=== PATIENT | male | born 1995 | race Caucasian/White ===

== ENCOUNTER → 2016-11-14 | Outpatient (REF) | payer OTHER | LOC: M LAB REF 11-13 10:46 | PROVIDERS: ATTEND Physician Assistant | DX: J02.9 Acute pharyngitis, unspecified (principal) ==

== ENCOUNTER → 2017-07-16 | Outpatient (CLI) | payer OTHER ==
--- NOTE | 2017-07-16 13:12 | REP ---
Clinical: Left-sided abdominal pain. Technique: Axial noncontrast images from the lung bases to the pubic symphysis with coronal and sagittal re-formations. Findings: Mild acute left-sided obstructive uropathy with mild hydroureteronephrosis and periureteral stranding secondary to a 2 mm calculus in the mid-left ureter (images 94 - 95). Right kidney demonstrates 2 mm nonobstructing intrarenal calculus and no evidence for hydroureteronephrosis. The bladder is collapsed and grossly unremarkable. Liver, spleen, pancreas, gallbladder, bilateral adrenal glands are normal for noncontrast evaluation. The enteric system is without obstruction or acute inflammatory process. Pelvis demonstrates collapsed normal bladder and age appropriate prostate/seminal vesicles. No pelvic fluid or ascites. No significant adenopathy. No free air. Abdominal aorta without aneurysm. Musculoskeletal structures are intact. Impression: Mild acute left-sided obstructive uropathy with a 2 mm calculus in the mid-left ureter (images 94 - 95). 2 mm nonobstructing right renal calculus also identified. Signed by Ketan Byrne MD 07/16/2017 01:03 P
== END ==
LOC: M RAD 12:43
PROVIDERS: ATTEND Physician Assistant
DX: R11.2 Nausea with vomiting, unspecified (principal); R10.814 Left lower quadrant abdominal tenderness; N20.1 Calculus of ureter; N20.0 Calculus of kidney

== ENCOUNTER → 2017-07-16 | Outpatient (CLI) | payer OTHER ==
--- NOTE | 2017-07-16 11:45 | REP ---
Clinical: Abdominal left flank pain with nausea and vomiting. Technique: Two supine views of the abdomen and pelvis. Findings: Visualized bowel gas is nonspecific and without obstruction. No definite urinary tract calcifications are appreciated although evaluation is somewhat limited due to technique and overlying bowel gas. Impression: No obvious urinary tract calcifications. Signed by Ketan Byrne MD 07/16/2017 11:36 A
[2017-07-16 12:38] LABS: BASO % 0.6 % (0.0-1.0); EOS # 0.1 10^3/uL (0.0-0.50); EOS % 1.1 % (0.0-3.0); IMMATURE GRANULOCYTE % 0.4 % (0-0); LYMPH % 14.1 % (24.0-44.0); MEAN CORPUSCULAR HEMOGLOBIN 29.9 pg (27.0-33.0); MEAN CORPUSCULAR VOLUME 85.6 fl (80.0-96.0); MONO # 0.4 10^3/uL (0.0-0.8); MONO % 5.7 % (0.0-5.0); NEUTROPHILS # 5.6 10^3/uL (1.8-7.7); NEUTROPHILS % 78.1 % (36.0-66.0); PLATELET COUNT, AUTOMATED 252 10^3/uL (150-450); RED CELL DISTRIBUTION WIDTH 12.5 % (11.5-14.5); WHITE BLOOD COUNT 7.2 10^3/uL (4.0-10.0)
[2017-07-16 13:21] LABS: ALBUMIN 4.3 GM/DL (3.2-5.2); ALBUMIN/GLOBULIN RATIO 1.26 (1.00-1.93); ALKALINE PHOSPHATASE 71 U/L (45-117); ALT/SGPT 66 U/L (12-78); ANION GAP 12 MEQ/L (8-16); AST/SGOT 38 U/L (7-37); BILIRUBIN,TOTAL 0.6 MG/DL (0.2-1.0); BLOOD UREA NITROGEN 12 MG/DL (7-18); CALCIUM LEVEL 9.3 MG/DL (8.5-10.1); CARBON DIOXIDE LEVEL 25 MEQ/L (21-32); CHLORIDE LEVEL 105 MEQ/L (98-107); CREATININE FOR GFR 1.02 MG/DL (0.70-1.30); GLOMERULAR FILTRATION RATE > 60.0 (>60); GLUCOSE, FASTING 124 MG/DL (70-105); SODIUM LEVEL 142 MEQ/L (136-145); TOTAL PROTEIN 7.7 GM/DL (6.4-8.2)
== END ==
LOC: M WUC 11:22
PROVIDERS: ATTEND Physician Assistant
DX: R10.814 Left lower quadrant abdominal tenderness (principal); R11.2 Nausea with vomiting, unspecified

== ENCOUNTER → 2017-07-26 | Outpatient (CLI) | payer OTHER ==
--- NOTE | 2017-07-27 23:23 | SLEEPCENT ---
DATE OF PROCEDURE: 07/26/2017 REFERRING PHYSICIAN: Nanette Vo Nocturnal polysomnography was performed for evaluation of sleep physiology in this patient with complaints of excessive somnolence and nonrestorative sleep. 7 hours and 17 minutes of data were reviewed. There were 378 minutes of sleep identified. Sleep latency was prolonged at 40 minutes. Rapid eye movement (REM) latency was prolonged at 185 minutes. Sleep architecture showed poor progression, some fragmentation. Overall sleep efficiency was 87.7%. There was significant reduction in REM time and no N3 sleep seen. The EKG showed an underlying sinus rhythm with an average heart rate of 66 beats per minute. EEG showed reasonably normal waveforms for awake and sleep. There were 66 respiratory events identified of 10 seconds in duration or greater for an apnea hypopnea index of 10.5. The events were primarily obstructive, not exclusive to sleep stage, more frequent, but not exclusive in the supine posture. Arousals from respiratory events occurred four times per hour and oxygen desaturations were seen briefly into the 80s with some limb activity noted, but arousals were few. Significant snoring was noted. IMPRESSION: Obstructive sleep apnea syndrome (G47.33). Apnea/hypopnea index 10.5. RECOMMENDATION: The patient should be encouraged to return to the sleep disorder center for pressure therapy. In the interim, alcohol and sedative avoidance should be practiced and caution exercised during the operation of motor vehicles.
== END ==
LOC: M SLEEP 19:26
PROVIDERS: ATTEND Nurse Practitioner Adult Health
DX: G47.30 Sleep apnea, unspecified (principal)

== ENCOUNTER → 2017-08-09 | Outpatient (REF) | payer OTHER ==
[2017-08-10 13:11] LABS: CALCIUM OXALATE CRYSTALS SMALL
== END ==
LOC: M SMT 12:49
PROVIDERS: ATTEND Nurse Practitioner Family
DX: N20.0 Calculus of kidney (principal)

== ENCOUNTER → 2017-09-09 | Outpatient (REF) | payer OTHER ==
[2017-09-09 20:24] LABS: APPEARANCE, URINE CLOUDY (CLEAR); BACTERIA, URINE AUTO NEGATIVE (NEGATIVE); BILIRUBIN, URINE AUTO NEGATIVE (NEGATIVE); BLOOD, URINE BLOOD 3+ (NEGATIVE); CALCIUM OXALATE CRYSTALS LARGE; COLOR, URINE AMBER (YELLOW); GLUCOSE, URINE (UA) AUTO NEGATIVE (NEGATIVE); KETONE, URINE AUTO NEGATIVE (NEGATIVE); LEUKOCYTE ESTERASE, URINE AUTO NEGATIVE (NEGATIVE); MUCUS, URINE SMALL (NEGATIVE); NITRITE, URINE AUTO NEGATIVE (NEGATIVE); PROTEIN, URINE AUTO 1+ mg/dL (NEGATIVE); RBC, URINE AUTO TNTC /HPF (0-3); SPECIFIC GRAVITY URINE AUTO 1.027 (1.002-1.035); SQUAMOUS EPITHELIAL CELL UR AU 0 /HPF (0-6); UROBILINOGEN, URINE AUTO 0.2 mg/dL (0.0-2.0); WBC, URINE AUTO 4 /HPF (0-3)
== END ==
LOC: M SMT 18:32
DX: N20.0 Calculus of kidney (principal)

== ENCOUNTER → 2017-09-22 | Outpatient (REF) | payer OTHER ==
[2017-09-22 19:37] LABS: AMORPHOUS SEDIMENT SMALL (NEGATIVE); APPEARANCE, URINE HAZY (CLEAR); BACTERIA, URINE AUTO NEGATIVE (NEGATIVE); BILIRUBIN, URINE AUTO NEGATIVE (NEGATIVE); BLOOD, URINE BLOOD 3+ (NEGATIVE); COLOR, URINE YELLOW (YELLOW); GLUCOSE, URINE (UA) AUTO NEGATIVE (NEGATIVE); KETONE, URINE AUTO NEGATIVE (NEGATIVE); LEUKOCYTE ESTERASE, URINE AUTO NEGATIVE (NEGATIVE); MUCUS, URINE SMALL (NEGATIVE); NITRITE, URINE AUTO NEGATIVE (NEGATIVE); PROTEIN, URINE AUTO 1+ mg/dL (NEGATIVE); RBC, URINE AUTO TNTC /HPF (0-3); SQUAMOUS EPITHELIAL CELL UR AU 0 /HPF (0-6); WBC, URINE AUTO 1 /HPF (0-3)
== END ==
LOC: M SMT 17:38
DX: N20.0 Calculus of kidney (principal)
CPT/HCPCS: 81001

== ENCOUNTER → 2017-10-04 | Outpatient (CLI) | payer OTHER ==
[~2017-10-04] MED LIST: ISOVUE-370 76% 100ML VIAL (Q9967) As Ordered
== END ==
LOC: M RAD 16:57
DX: N20.0 Calculus of kidney (principal)

== ENCOUNTER → 2017-10-11 | Outpatient (REF) | payer OTHER ==
[2017-10-11 19:26] LABS: APPEARANCE, URINE CLEAR (CLEAR); BACTERIA, URINE AUTO NEGATIVE (NEGATIVE); BILIRUBIN, URINE AUTO NEGATIVE (NEGATIVE); BLOOD, URINE BLOOD NEGATIVE (NEGATIVE); COLOR, URINE YELLOW (YELLOW); GLUCOSE, URINE (UA) AUTO NEGATIVE (NEGATIVE); KETONE, URINE AUTO NEGATIVE (NEGATIVE); LEUKOCYTE ESTERASE, URINE AUTO NEGATIVE (NEGATIVE); MUCUS, URINE SMALL (NEGATIVE); NITRITE, URINE AUTO NEGATIVE (NEGATIVE); PROTEIN, URINE AUTO NEGATIVE (NEGATIVE); RBC, URINE AUTO 1 /HPF (0-3); SPECIFIC GRAVITY URINE AUTO 1.017 (1.002-1.035); SQUAMOUS EPITHELIAL CELL UR AU 0 /HPF (0-6); UROBILINOGEN, URINE AUTO 0.2 mg/dL (0.0-2.0); WBC, URINE AUTO 1 /HPF (0-3)
== END ==
LOC: M SMT 17:15
DX: R31.29 Other microscopic hematuria (principal)

== ENCOUNTER → 2018-07-25 | Outpatient (CLI) | payer OTHER ==
[2018-07-25 20:15] LABS: BASO # 0.1 10^3/uL (0.0-0.2); BASO % 0.6 % (0.0-1.0); EOS # 0.2 10^3/uL (0.0-0.50); EOS % 2.8 % (0.0-3.0); HEMATOCRIT 47.1 % (42.0-52.0); HEMOGLOBIN 16.2 g/dl (13.5-17.5); IMMATURE GRANULOCYTE % 0.2 % (0-3.0); LYMPH # 2.6 10^3/uL (1.5-6.5); LYMPH % 30.5 % (24.0-44.0); MEAN CORPUSCULAR HEMOGLOBIN 30.1 pg (27.0-33.0); MEAN CORPUSCULAR HGB CONC 34.4 g/dl (32.0-36.5); MEAN CORPUSCULAR VOLUME 87.4 fl (80.0-96.0); MONO # 0.6 10^3/uL (0.0-0.8); MONO % 7.1 % (0.0-5.0); NEUTROPHILS % 58.8 % (36.0-66.0); PLATELET COUNT, AUTOMATED 281 10^3/uL (150-450); RED BLOOD COUNT 5.39 10^6/uL (4.30-6.10); RED CELL DISTRIBUTION WIDTH 12.6 % (11.5-14.5); WHITE BLOOD COUNT 8.5 10^3/uL (4.0-10.0)
[2018-07-25 20:37] LABS: ANION GAP 9 MEQ/L (8-16); BLOOD UREA NITROGEN 9 MG/DL (7-18); CARBON DIOXIDE LEVEL 27 MEQ/L (21-32); CHLORIDE LEVEL 104 MEQ/L (98-107); CREATININE FOR GFR 0.88 MG/DL (0.70-1.30); GLOMERULAR FILTRATION RATE > 60.0 (>60); GLUCOSE, FASTING 81 MG/DL (70-100); NT-PRO BNP 10 PG/ML (<125); POTASSIUM SERUM 4.2 MEQ/L (3.5-5.1); SODIUM LEVEL 140 MEQ/L (136-145)
[2018-07-25 21:23] LABS: D-DIMER QUANT < 270 ng/ml (<500)
== END ==
LOC: M WUC 16:49
DX: R06.02 Shortness of breath (principal)
CPT/HCPCS: 80048

== ENCOUNTER → 2018-07-29 | Outpatient (REF) | payer OTHER ==
[2018-07-29 14:54] LABS: AMYLASE 49 U/L (25-115)
[2018-07-29 15:54] LABS: LIPASE 166 U/L (73-393)
== END ==
LOC: M LAB REF 13:30
DX: Z80.0 Family history of malignant neoplasm of digestive organs (principal)
CPT/HCPCS: 82150

== ENCOUNTER 2019-05-09 23:34 | Emergency (ER) | payer OTHER, SELFPAY ==
[~2019-05-09] VITALS: Ht 188 cm; Wt 163.6 kg
[2019-05-10 01:09] LABS: HEMATOCRIT 42.4 % (42.0-52.0); HEMOGLOBIN 15.4 g/dl (13.5-17.5); MEAN CORPUSCULAR HEMOGLOBIN 31.2 pg (27.0-33.0); MEAN CORPUSCULAR HGB CONC 36.3 g/dl (32.0-36.5); MEAN CORPUSCULAR VOLUME 85.8 fl (80.0-96.0); PLATELET COUNT, AUTOMATED 239 10^3/uL (150-450); RED BLOOD COUNT 4.94 10^6/uL (4.30-6.10); WHITE BLOOD COUNT 7.4 10^3/uL (4.0-10.0)
[2019-05-10 01:35] LABS: BLOOD UREA NITROGEN 13 MG/DL (7-18); CALCIUM LEVEL 8.8 MG/DL (8.5-10.1); CARBON DIOXIDE LEVEL 24 MEQ/L (21-32); CHLORIDE LEVEL 107 MEQ/L (98-107); CK-MB VALUE MASS 1.2 NG/ML (<3.6); CPK CREATINE PHOSPHOKINASE 201 U/L (39-308); CREATININE FOR GFR 0.84 MG/DL (0.70-1.30); GLOMERULAR FILTRATION RATE > 60.0 (>60); GLUCOSE, FASTING 109 MG/DL (70-100); POTASSIUM SERUM 3.9 MEQ/L (3.5-5.1); SODIUM LEVEL 141 MEQ/L (136-145); TROPONIN I < 0.02 NG/ML (< 0.10)
[2019-05-10 02:32] VITALS: BP 144/90
--- NOTE | 2019-05-10 05:50 | ECGEPIP ---
[facility] - ED Test Date: 2019-05-10 Pat Name: PRISCILLA HARMON Department: Room: - Gender: Male Supervisor Advice: CT : 1995 Requested By: MANNIE Arevalo PA-C Order Number: [id number] Reading MD: Calixto Koo Measurements Intervals [place] Rate: 60 P: 27 SC: 177 QRS: 41 QRSD: 104 T: 34 QT: 406 QTc: 408 Interpretive Statements SINUS RHYTHM NO PRIORS FOR COMPARISON Electronically Signed on 05-10-2019 5:49:37 EDT by Calixto Koo
--- NOTE | 2019-05-10 09:19 | REP ---
CHEST, PA AND LATERAL: COMPARISON: 09/24/2017 There is no evidence of acute infiltrate. No pleural effusion is seen. The heart is normal in size. The mediastinal silhouette is unremarkable. The visualized osseous structures are intact. IMPRESSION: No acute pulmonary disease. Electronically Signed by Brice Koenig MD 05/11/2019 08:04 A
== END 2019-05-10 02:34 | disposition home or self-care (01) ==
LOC: M ED 23:34
DX: R06.02 Shortness of breath (principal); Z87.09 Personal history of other diseases of the respiratory system; I10 Essential (primary) hypertension; J30.2 Other seasonal allergic rhinitis

== ENCOUNTER → 2019-10-18 | Outpatient (CLI) | payer OTHER | LOC: M SLEEP 19:38 | PROVIDERS: ATTEND Nurse Practitioner Family | DX: G47.33 Obstructive sleep apnea (adult) (pediatric) (principal) ==

== ENCOUNTER → 2020-01-22 | Outpatient (CLI) | payer OTHER ==
--- NOTE | 2020-01-31 11:04 | SLEEPCENT ---
DATE OF STUDY: 01/22/2020 ORDERING PROVIDER: GEORGE Costa Nocturnal polysomnography was performed for the titration of pressure therapy in this patient with severe obstructive sleep apnea syndrome. Apnea-hypopnea index of 102.5. For testing, the patient was fit with a Asuragen Simplus full face mask of small size. 4 cm of water pressure were applied to the circuit, and the lights were extinguished. 6 hours and 21 minutes of data were reviewed. There were only 161 minutes of sleep identified. Sleep latency was prolonged at 26.5 minutes. Rapid eye movement (REM) sleep was not achieved. Sleep architecture showed poor progression. The patient had some difficulty with mask fit. Overall sleep efficiency was 42.8%. The electrocardiogram showed a sinus rhythm with an average heart rate of 60 beats per minute. Electroencephalogram (EEG) showed normal waveforms for awake and sleep. Respiratory events were fairly well palliated with continuous positive airway pressure (CPAP) at a pressure of 10. There was some limb activity noted with limb movement arousal index of only 6. IMPRESSION: Obstructive sleep apnea syndrome (G47.33). RECOMMENDATION: Nightly use of pressure therapy at 10 cm of water would appear adequate to address the patient's obstructive respiratory events. Some difficulty was encountered with mask tolerance. Post clinical followup is recommended; and if persistent problems exist, a second night of titration may be necessary.
== END ==
LOC: M SLEEP 20:00
PROVIDERS: ATTEND Nurse Practitioner Family
DX: G47.33 Obstructive sleep apnea (adult) (pediatric) (principal)

== ENCOUNTER → 2020-08-27 | Outpatient (CLI) | payer SELFPAY | LOC: M LABSMTC 11:42 | PROVIDERS: ATTEND Pediatrics | DX: Z20.828 Contact with and (suspected) exposure to other viral communicable diseases (principal) ==

== ENCOUNTER → 2021-06-06 | Outpatient (CLI) | payer OTHER ==
--- NOTE | 2021-06-06 09:31 | REP ---
INDICATION: FLANK PAIN COMPARISON: CT report dated 10/04/2017 TECHNIQUE: Axial noncontrast images from the lung bases to the pubic symphysis with coronal and sagittal reformations. This CT examination was performed using the following dose reduction techniques: Automated exposure control, adjustment of mA and/or kv according to the patient's size, and use of iterative reconstruction technique. FINDINGS: Lung bases are clear. Visualized heart and pericardium normal. Liver, spleen, pancreas, gallbladder, bilateral adrenal glands and left kidney are normal. Right kidney includes 7 mm nonobstructing intrarenal calculus. The enteric system is unremarkable and without obstruction or acute inflammatory process. Normal terminal ileum and appendix identified in the right lower quadrant. Scattered sigmoid diverticula noted without acute diverticulitis. Pelvis demonstrates normal bladder and age-appropriate uterus/adnexa. No ascites. No free air. No adenopathy. No focal inflammatory stranding. Abdominal aorta without aneurysm. Musculoskeletal structures are intact and without acute osseous abnormality. IMPRESSION: No acute abdominopelvic pathology appreciated. 7 mm nonobstructing right nephrolith. <Electronically signed by Ketan Byrne > 06/06/21 0927
== END ==
LOC: M RAD 09:05
PROVIDERS: ATTEND Nurse Practitioner Adult Health
DX: N20.0 Calculus of kidney (principal)

== ENCOUNTER → 2021-07-26 | Outpatient (CLI) | payer OTHER | LOC: M LABSMTC 09:31 | PROVIDERS: ATTEND Anesthesiology | DX: Z01.812 Encounter for preprocedural laboratory examination (principal); Z20.822 Contact with and (suspected) exposure to COVID-19 ==

== ENCOUNTER → 2021-07-28 | Outpatient (REF) | payer OTHER ==
[~2021-07-28] MED LIST changes: +FLOM0.4C39 PO; -ISOVUE-370 76% 100ML VIAL (Q9967) As Ordered; +LISI20TA33; +ONDA-83; +OXYC1TAB23 PO
[2021-07-28 18:07] LABS: INR 0.99; PROTHROMBIN TIME 13.5 SECONDS (12.7-14.5)
[2021-07-28 18:08] LABS: PARTIAL THROMBOPLASTIN TIME 33.2 SECONDS (25.9-37.0)
[2021-07-28 18:40] LABS: APPEARANCE, URINE CLEAR (CLEAR); BACTERIA, URINE AUTO NEGATIVE (NEGATIVE); BILIRUBIN, URINE AUTO NEGATIVE (NEGATIVE); BLOOD, URINE BLOOD 3+ (NEGATIVE); COLOR, URINE YELLOW (YELLOW); GLUCOSE, URINE (UA) AUTO NEGATIVE (NEGATIVE); KETONE, URINE AUTO TRACE mg/dL (NEGATIVE); LEUKOCYTE ESTERASE, URINE AUTO NEGATIVE (NEGATIVE); MUCUS, URINE SMALL (NEGATIVE); NITRITE, URINE AUTO NEGATIVE (NEGATIVE); PROTEIN, URINE AUTO 1+ mg/dL (NEGATIVE); RBC, URINE AUTO 55 /HPF (0-3); SPECIFIC GRAVITY URINE AUTO 1.025 (1.002-1.035); SQUAMOUS EPITHELIAL CELL UR AU 0 /HPF (0-6); WBC, URINE AUTO 1 /HPF (0-3)
== END ==
LOC: M LAB REF 16:30
PROVIDERS: ATTEND Nurse Practitioner Adult Health
DX: Z01.818 Encounter for other preprocedural examination (principal)

== ENCOUNTER 2021-07-31 06:12 | Day surgery (SDC) | payer OTHER ==
[~2021-07-31] VITALS: Ht 188 cm; Wt 152.8 kg
[~2021-07-31 06:12] MED LIST changes: -FLOM0.4C39 PO; +LR 1,000 ML IV ONE; -OXYC1TAB23 PO; +ceFAZolin SOD 1 GM in D5W MINI-BAG PLUS 50 ML IV ONE; +ceFAZolin SOD 2 GM in IV 1 EA IV ONE
--- OUTSIDE RECORDS SUMMARY | 2021-07-31 06:15 | CCD | Continuity of Care Document ---
Author Author Lab Schedule, Jesse Salinas Organization Unknown Address [address] [place] [address] Phone Unavailable Care Team Providers Care Paper Steamer Name Role Phone Otilia Perla AUTM [phone] Lexie Anderson ANP AUTM [phone] [facility] Radiology AUTM [phone] Patti Hunter WRAPPER LEAF INSPECTOR AUTM [phone] Problems Active Problems Provider Date Obesity Javi Moran MD Onset: 03/01/2012 Allergic rhinitis Javi Moran MD Onset: 03/01/2012 Obstructive sleep apnea of adult Rajni GEORGE Mckeon Onset: 09/07/2017 Social History Type Date Description Comments Sex Unknown ETOH Use Occasionally consumes beer or li quor 2-3 drinks on the weekends Tobacco Use Start: Unknown Patient has never smoked Exercise Type/Frequency Exercises regularly goes to gym every-other day, then walk in [facility] Allergies and adverse reactions Description No Known Drug Allergies Medications Active Medications SIG Qnty Indications Ordering Provide r Date Zofran 4mg Tablets 1 by mouth every 6 hrs. as needed nausea 18tabs DASH Loaiza 07/02/2021 Montelukast Sodium 10mg Tablets take one tablet by mouth at bedtime 90tabs RITIKA Brown JR 05/10/2020 Lisinopril 20mg Tablets Take One Tablet By Mouth Daily 90tabs I10 DASH Loaiza 09/30/2018 Blood Pressure Cuff Misc BP before med administration, 1 hour after and once before bed. 1units GEORGE Chin 07/28/2018 No OTC Meds Javi Moran MD Dymista 137-50mcg/Act Suspension 1 spray each nostril twice a day 23gm Edgardo Barron JR, P A Medications Administered in Office Medication SIG Qnty Indications Ordering Provider Date Covid-19 vaccine, Unspecified Inj ection Unknown 10/30/2020 Covid-19 vaccine, Unspecified Inj ection Unknown 10/02/2020 Immunizations CPT Code Status Date Vaccine Lot # U-Flu Refused 07/28/2018 Influenza,Unspecified Vital Signs Date Vital Result Comment 05/21/2021 9:11am BP Systolic 142 mmHg BP Diastolic 88 mmHg Heart Rate 84 /min Height 72.75 inches 6'0.75" Weight 347.00 lb O2 % BldC Oximetry 96 % BMI (Body Mass Index) 46.1 kg/m2 07/08/2020 1:30pm BP Systolic 122 mmHg BP Diastolic 70 mmHg Heart Rate 82 /min Height 72.75 inches 6'0.75" Weight 358.00 lb O2 % BldC Oximetry 97 % BMI (Body Mass Index) 47.6 kg/m2 Results Test Acquired Date Facility Test Result H/L Range Note Laboratory test finding 07/28/[address] [address] [phone] Urine Culture <pending> Coronavirus 2019 Nasopharygeal 07/26/[address] [address] [phone] Coronavirus 2019 Nasopharygeal ASSAY INFORMATIO <SEE N OTE> 1 Complete Blood Count 05/21/2021 [facility] Metal Refiner: [place] [address] [phone] WBC 6.3 x10*3/UL 4.1 - 10.9 RBC 5.31 x10*6/UL 4.20 - 6.30 Hemoglobin 16.0 g/dL 12.0 - 18.0 Hematocrit 45.5 % 37.0 - 51.0 MCV 85.8 fL 80.0 - 97.0 MCH 30.2 pg 26.0 - 32.0 MCHC 35.2 g/dL 31.0 - 38.0 RDW 12.6 % 11.6 - 13.7 PLT 253 x10*3/UL 140 - 440 MPV 9.5 FL 7.8 - 11.0 Lymph % 26.2 % 10.0 - 58.5 Mid % 6.5 % 1.7 - 9.3 Neut % 67.3 % 37.0 - 92.0 Lymph # 1.6 x10*3/UL 0.6 - 4.1 Mid # 0.5 x10*3/UL 0.1 - 0.6 Neut # 4.2 x10*3/UL 2.0 - 7.8 Comprehensive Chem Profile 05/21/2021 [facility] Metal Refiner: [place] [address] [phone] Glucose 81 mg/dL 74 - 99 2 BUN 10 mg/dL 7 - 18 Creatinine 1.0 mg/dL 0.6 - 1.3 Sodium 139 mEq/L 136 - 145 Potassium 4.3 mEq/L 3.5 - 5.1 Chloride 103 mEq/L 98 - 107 Carbon Dioxide 32 mEq/L 21 - 32 Calcium 9.2 mg/dL 8.5 - 10.1 Alk. Phosphatase 71 mg/dL 46 - 116 Total Bilirubin 0.5 mg/dL 0.2 - 1.0 Ast (Sgot) 37 U/L 15 - 37 Alt (SGPT) 80 U/L High 12 - 78 Albumin 4.0 g/dL 3.4 - 5.0 Total Protein 7.4 g/dL 6.4 - 8.2 A/G Ratio 1.18 CALC 1.00 - 1.90 GFR >= 60 mL/min >60 GFR >= 60 mL/min >60 3 Lipid Profile 05/21/2021 [facility] Metal Refiner: [place] [address] [phone] Cholesterol 134 mg/dL 131 - 200 Triglycerides 128 mg/dL 30 - 150 HDL Cholesterol 33 mg/dL Low 35 - 60 LDL (Calculated) 75 CALC 50 - 159 1 ASSAY INFORMATION: Real Time RT-PCR NOTE: The COVID-19 assay has been cleared by the U.S. Food and Drug Administration under the Emergency Use Authorization (EUA). [facility] are designated as high complexity laboratories by the Clinical Laboratory Improvement Amendments of 1988(CLIA) and are qualified to perform this test. Not Detected 2 100-125 mg/dL PRE-DIABET ES/FASTING >126 mg/dL DIABETES/FASTING 3 CHRONIC KIDNEY DISEASE STAGI NG PER NKF STAGE I & II GFR >= 60 NORMAL TO MILDLY DECREASED STAGE III GFR 30-59 MODERATELY DECREASED STAGE IV GFR 15-29 SEVERELY DECREASED STAGE V GFR <15 VERY LITTLE GFR LEFT ESRD GFR <15 ON LACROSSE PLAYER Procedures Date Code Description Status 05/21/2021 86929 Est Prevent Med (18-39Yrs) Compl eted 2016 [id number] Diabetic Retinal Eye Exam Comple william 09/06/2012 [id number] Diabetic Retinal Eye Exam Comple [facility] Medical Devices Description No Information Available Encounters Type Date Location Provider Dx Diagnosis Office Visit 05/21/2021 9:00a [facility] DASH Loaiza Z00.00 Encntr for general adult medical exam w/ o abnormal findings I10 Essential (primary) hyperten ericka Z68.42 Body mass index [BMI] 45.0-4 9.9, adult E66.01 Morbid (severe) obesity due to excess calories Z13.89 Encounter for screening for other disorder Assessments Date Code Description Provider 05/21/2021 Z00.00 Encounter for genera l adult medical examination without abnormal findings DASH Loaiza 05/21/2021 I10 Essential (primary) hypertension DASH Loaiza 05/21/2021 Z68.42 Body mass index [BMI] 45.0-49.9, adult DASH Loaiza 05/21/2021 E66.01 Morbid (severe) obesity due to e xcess calories DASH Loaiza 05/21/2021 Z13.89 Encounter for screening for othe r disorder DASH Loaiza Plan of Treatment Future Appointment(s):* 11/18/2021 9:40 am - DASH Loaiza at [facility] 05/21/2021 - DASH Loaiza* Z00.00 Encounter for general adult medical examination without abnormal findings * I10 Essential (primary) hypertension* Comments:* controlled with current medication * Z68.42 Body mass index [BMI] 45.0-49.9, adult * E66.01 Morbid (severe) obesity due to excess calories* Comments:* pt has lost 10 pounds and states he is making small changes to his diet to attempt to lose weight. pt encouraged to incorporate more physical activity into his daily routine as well. pt states more active that he is now working again. * Z13.89 Encounter for screening for other disorder * All * Comments:* follow up in 3 months. pt informed to contact practice for recurrent flank pain, hematuria, or issues urinating. Functional Status Description No Information Available Mental Status Description No Information Available Referrals Refer to Dr Reason for Referral Status Appt Date [facility] CONSULT FOR RT FLANK PAIN, H X OF KIDNEY STONE PT SCHEDULED FOR CT ABD/PELVIS AT [facility] ON 06/06/21 Created /0 [id number], [address] [place], [place] [id number] [phone]
--- OUTSIDE RECORDS SUMMARY | 2021-07-31 06:15 | CCD ---
Author Author [facility] Organization [facility] Address Unknown Phone Unavailable Care Team Providers Care Company Dancer Name Role Phone IvanPatti fernandes Unavailable PROBLEMS Type Condition ICD9-CM Code JCE64-VD Code Onset Dates Condition S tatus W/U Status Risk SNOMED Code Notes Problem Kidney stone N20.0 Active confirmed 5099333 7 Problem Microscopic hematuria R31.29 Active confirmed 851373657 ALLERGIES No Known Allergies ENCOUNTERS from 1995 to 2021-07-23 Encounter Location Date Provider Diagnosis [facility] [address] [phone] [place] [address] Jun, Patti Hunter Kidney stone N20.0 and Pre-op testing Z0 1.818 IMMUNIZATIONS No Information SOCIAL HISTORY Tobacco Use: Social History Observation Description Date Details (start date - stop date) Never Smoker Sex Assigned At : Social History Observation Description Sex Assigned At Unknown Education: Question Answer Notes Level of Education: College Oriental Orthodox: Question Answer Notes Oriental Orthodox none Sexual Hx: Question Answer Notes Had sex in the last 12 months (vaginal, oral, or anal)? No Have you ever had an STD? No Alcohol Screening: Question Answer Notes Did you have a drink containing alcohol in the past year? Ye s Points 4 Interpretation Positive How often did you have six or more drinks on one occas ion in the past year? Never (0 points) How many drinks did you have on a typica l day when you were drinking in the past year? 3 or 4 (1 point) How often did you have a drink containing alcohol in t he past year? Two to three times per week (3 points) BMI Care Goal Follow-Up Question Answer Notes Above Normal BMI Follow-Up Dietary management educatio n, guidance, and counseling Tobacco Use: Question Answer Notes Are you a: never smoker former smoker Additional Findings: Tobacco Non-User Current non-smoker REASON FOR REFERRAL No Information VITAL SIGNS Weight 357 lbs Jun, Weight-kg 161.93 kg Jun, Height 74 in Jun, BMI 45.83 kg/m2 Jun, Heart Rate 56 /min Jun, Respiratory Rate 18 /min Jun, Temperature 97.3 degrees Fahrenheit Jun, Oximetry 99% Jun, Blood pressure systolic 128 mm Hg Jun, Blood pressure diastolic 78 mm Hg Jun, MEDICATIONS Medication SIG (Take, Route, Frequency, Duration) Notes Start Da te End Date Status Ibuprofen 800 MG 1 tablet with food or milk as needed Ora lly Three times a day prn Active Dymista 137-50 MCG/ACT 1 puff in each nostril Nasally Twice a day prn Active Lisinopril 20 MG 1 tablet Orally Once a day for 30 day(s) Active Singulair 10 MG 1 tablet in the evening Orally Once a day prn Active PROCEDURES No Information RESULTS No Results REASON FOR VISIT Kidney stone MEDICAL (GENERAL) HISTORY Type Description Date Medical History nephrolithiasis Medical History SEASONAL ALLERGIES Medical History HTN Surgical History TONSILLECTOMY WITH ADENOIDECTOMY Goals Section No Information Health Concerns No Information MEDICAL EQUIPMENT No Information MENTAL STATUS No Information FUNCTIONAL STATUS No Information ASSESSMENTS Encounter Date Diagnosis Assessment Notes Treatment Notes Treatm ent Clinical Notes Jun, Kidney stone (ICD-10 - N20.0) Jun, Pre-op testing (ICD-10 - Z01.818) Jun, Other Extracorporeal s hock wave lithotripsy home care material was printed Patient Educated with: ESWL Patient Information Sheet.pdf (ESWL Patient Information Sheet.pdf) PLAN OF TREATMENT Future Test Test Name Order Date XRAY ABDOMEN, FLAT PLATE KUB XR.ABDP PLZ or SMC 994056 20 Basic Metabolic Profile (BMP) [id number] CBC - Complete Blood Count 20210721 PT & APTT [id number] URINE CULTURE [id number] UA URINALYSIS [id number] Next Appt Details Provider Name:Patti Hunter, 2020-12-2 3 10:15:00 AM, [address], , [place], [address], Insurance Providers Payer Name Payer Address Payer Phone Insured Name Patient Relati onship to Insured Coverage Start Date Coverage End Date [facility] [address] [address] [facility] [phone] PRISCILLA BRAND self
--- OUTSIDE RECORDS SUMMARY | 2021-07-31 06:15 | CCD | Continuity of Care Document ---
Author Author Jesse Anderson Organization Unknown Address [address] [facility] [address] [place] [address] Phone [phone] Care Team Providers Care Shift Boss Name Role Phone Otilia Perla AUTM [phone] Lexie Anderson ANP AUTM [phone] [facility] AUTM [phone] Problems Active Problems Provider Date Obesity Javi Moran MD Onset: 03/01/2012 Allergic rhinitis Javi Moran MD Onset: 03/01/2012 Obstructive sleep apnea of adult Phyl GEORGE Mckeon Onset: 09/07/2017 Social History Type Date Description Comments Sex Unknown ETOH Use Occasionally consumes beer or li quor 2-3 drinks on the weekends Tobacco Use Start: Unknown Patient has never smoked Exercise Type/Frequency Exercises regularly goes to gym every-other day, then walk in [facility] Allergies, Adverse Reactions, Alerts Description No Known Drug Allergies Medications Active Medications SIG Qnty Indications Ordering Provide r Date Montelukast Sodium 10mg Tablets take one tablet [...] nostril twice a day 23gm Edgardo Barron JR P A Medications Administered in Office Medication [...] Date Facility Test Result H/L Range Note Complete Blood Count 05/21/2021 [facility] Hydrant Setter: Dr Javi Moran [place], [place] [id number] [phone] WBC 6.3 x10*3/UL 4.1 - 10.9 RBC [...] 2.0 - 7.8 Comprehensive Chem Profile 05/21/2021 [facility] Hydrant Setter: Dr Javi Moran [place], [place] [address] [phone] Glucose 81 mg/dL 74 - 99 1 BUN 10 mg/dL 7 - 18 Creatinine [...] mL/min >60 GFR >= 60 mL/min >60 2 Lipid Profile 05/21/2021 [facility] Hydrant Setter: [place] [address] [phone] Cholesterol 134 mg/dL 131 - 200 Triglycerides 128 mg/dL 30 - 150 HDL Cholesterol 33 mg/dL Low 35 - 60 LDL (Calculated) 75 CALC 50 - 159 1 100-125 mg/dL PRE-DIABET ES/FASTING >126 mg/dL DIABETES/FASTING 2 CHRONIC KIDNEY DISEASE STAGI NG PER NKF STAGE I & II GFR >= 60 NORMAL TO MILDLY DECREASED STAGE III GFR 30-59 MODERATELY DECREASED STAGE IV GFR 15-29 SEVERELY DECREASED STAGE V GFR <15 VERY LITTLE GFR LEFT ESRD GFR <15 ON PERSONAL COMPUTER NETWORK ENGINEER Procedures Date Code Description Status 05/21/2021 72798 Est Prevent Med (18-39Yrs) Compl eted 2016 [id number] Diabetic Retinal Eye Exam Comple william 09/06/2012 [id number] Diabetic Retinal Eye Exam Comple [facility] Medical Devices Description No Information Available Encounters Type Date Location Provider Dx Diagnosis Office Visit 05/21/2021 9:00a [facility], DASH Z00.00 Encntr for general adult medical exam [...] 11/18/2021 9:40 am - [facility] 05/21/2021 - DASH Loaiza* Z00.00 Encounter [...] Mental Status Description No Information Available Referrals Description No Information Available
--- OUTSIDE RECORDS SUMMARY | 2021-07-31 06:15 | CCD | Continuity of Care Document ---
Author Author Jesse Anderson Organization Unknown Address [address] [facility] [address] [place] [address] Phone [phone] Care Team Providers Care Automatic Spooler Operator Name Role Phone Otilia Perla AUTM [phone] Lexie Anderson ANP AUTM [phone] [facility] AUTM [phone] Problems Active Problems Provider Date Obesity Javi [...] to gym every-other day, then walk in [facility] Allergies, Adverse Reactions, Alerts Description No Known Drug Allergies Medications Active Medications SIG Qnty Indications Ordering Provide r Date Montelukast Sodium 10mg Tablets take one tablet by mouth at bedtime 90tabs RIITKA Brown JR 05/10/2020 Lisinopril 20mg Tablets Take [...] BMI (Body Mass Index) 47.6 kg/m2 Results Description No Information Available Procedures Date Code Description Status 2015 [id number] Diabetic Retinal Eye Exam Comple william 09/06/2012 750070967 Diabetic Retinal Eye Exam [facility]ple [facility] Medical Devices Description No Information Available Encounters Description No Information Available Assessments Date Code Description Provider 05/21/2021 Z00.01 Adult health examination DASH Parry 05/21/2021 I10 Essential (primary) hypertension DASH Loaiza 05/21/2021 E66.01 Morbid (severe) obesity due to e xcess calories DASH Loaiza Plan of Treatment Future Appointment(s):* 11/18/2021 9:40 am - DASH Loaiza at [facility] 05/21/2021 - DASH Loaiza* Z00.01 Adult health examination* Comments:* pt to have CT with stone protocol. follow up with urology. pt encouraged to use strainer or urinal when urinating to ensure stones have passed. pt told to call or go to ER with hematuria, severe flank pain, nausea, or vomiting. pt continues to use OTC acetaminophen as needed. * I10 Essential (primary) hypertension* Comments:* controlled with current medication * E66.01 Morbid (severe) obesity due to excess calories* Comments:* pt has lost 10 pounds and states he is making small changes to his diet to attempt to lose weight. pt encouraged to incorporate more physical activity into his daily routine as well. pt states more active that he is now working again. * All * Comments:* follow up in 3 months. pt informed to contact practice for recurrent flank pain, hematuria, or issues urinating. Functional Status Description No Information Available Mental Status Description No Information Available Referrals Description No Information Available
--- OUTSIDE RECORDS SUMMARY | 2021-07-31 06:15 | CCD | Continuity of Care Document ---
Author Author Lab Schedule, Jesse Salinas Organization Unknown Address [address] [place] [id number] Phone Unavailable Care Team Providers Care Chief Medical Technologist Name Role Phone Otilia Perla AUTM [phone] Lexie Anderson ANP AUTM [phone] [facility] Radiology AUTM [phone] Patti Hunter [employer] AUTM [phone] Problems Active Problems Provider Date Obesity Javi [...] to gym every-other day, then walk in [facility] Allergies and adverse reactions Description No [...] H/L Range Note Laboratory test finding 07/28/[address] [address] [phone] Urine Culture <pending> Coronavirus 2019 Nasopharygeal 07/26/[address] [address] [phone] Coronavirus 2019 Nasopharygeal ASSAY INFORMATIO <SEE N OTE> 1 Complete Blood Count 05/21/2021 [facility] Chemical Engineering Professor: [place] [address] [phone] WBC 6.3 x10*3/UL 4.1 - 10.9 RBC [...] 2.0 - 7.8 Comprehensive Chem Profile 05/21/[address] [facility] Chemical Engineering Professor: [place] [address] [phone] Glucose 81 mg/dL 74 - 99 2 [...] 60 mL/min >60 3 Lipid Profile 05/21/2021 [facility] Chemical Engineering Professor: [place] [address] [phone] Cholesterol 134 mg/dL 131 - 200 Triglycerides 128 mg/dL 30 - 150 HDL Cholesterol 33 mg/dL Low 35 - 60 LDL (Calculated) 75 CALC 50 - 159 1 ASSAY INFORMATION: Real Time RT-PCR NOTE: The COVID-19 assay has been cleared by the U.S. Food and Drug Administration under the Emergency Use Authorization (EUA). 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 DAHS Loaiza Z00.00 Encntr for general adult medical [...] 11/18/2021 9:40 am - DASH Loaiza at [facility] 05/21/2021 - DASH Loaiza* Z00.00 [...] Dr Reason for Referral Status Appt Date [facility] CONSULT FOR RT FLANK PAIN, H X OF KIDNEY STONE PT SCHEDULED FOR CT ABD/PELVIS AT [facility] ON 06/06/21 Created /0 000 [id number], [address] [place], [place] [id number] [phone]
--- OUTSIDE RECORDS SUMMARY | 2021-07-31 06:15 | CCD | Continuity of Care Document ---
Author Author Jesse Anderson Organization Unknown Address [address] [facility] [address] [place] [address] Phone [phone] Care Team Providers Care Window Glass Cutter Off Name Role Phone Otilia Perla AUTM [phone] Lexie Anderson ANP AUTM [phone] [facility] AUTM [phone] Problems Active Problems Provider Date Obesity Javi [...] to gym every-other day, then walk in [facility] Allergies, Adverse Reactions, Alerts Description No Known Drug Allergies Medications Active Medications SIG Qnty Indications Ordering Provide r Date Montelukast Sodium 10mg Tablets take one tablet by mouth at bedtime 90tabs RITIKA Brwon JR 05/10/2020 Lisinopril 20mg Tablets Take One [...] H/L Range Note Complete Blood Count 05/21/2021 [facility] Resident Caregiver: Dr Javi Moran [place], [place] [id number] [phone] WBC 6.3 x10*3/UL 4.1 - 10.9 RBC [...] 2.0 - 7.8 Comprehensive Chem Profile 05/21/2021 [facility] Resident Caregiver: Dr Javi Moran [place], [place] [id number] [phone] Glucose 81 mg/dL 74 - 99 1 [...] 60 mL/min >60 2 Lipid Profile 05/21/2021 [facility] Resident Caregiver: Dr Javi Moran [place], [place] [id number] [phone] Cholesterol 134 mg/dL 131 - 200 Triglycerides [...] LITTLE GFR LEFT ESRD GFR <15 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 Procedures Date Code Description Status 2015 [id number] Diabetic Retinal Eye Exam Comple william 09/06/2012 [id number] Diabetic Retinal Eye Exam Comple [facility] Medical Devices Description No Information Available Encounters Description No Information Available Assessments Date Code Description Provider 05/21/2021 Z00.01 Adult health examination DASH Parry 05/21/2021 I10 Essential (primary) hypertension DASH Loaiza 05/21/2021 E66.01 Morbid (severe) obesity due to e xcess calories DASH Loaiza Plan of Treatment Future Appointment(s):* 11/18/2021 9:40 am - DASH Loaiza at [facility] 05/21/2021 - DASH Loaiza* Z00.01 [...]
--- OUTSIDE RECORDS SUMMARY | 2021-07-31 06:15 | CCD | Continuity of Care Document ---
Author Author Lab Schedule, Jesse Salinas Organization Unknown Address [address] [place] [address] Phone Unavailable Care Team Providers Care Change Management Administrator Name Role Phone Otilia Perla AUTM [phone] Lexie Anderson ANP AUTM [phone] [facility] Radiology AUTM [phone] Patti Hunter PIT BOSS AUTM [phone] Problems Active Problems Provider Date Obesity Javi [...] to gym every-other day, then walk in [facility] Allergies and adverse reactions Description No Known [...] H/L Range Note Laboratory test finding 07/28/[address] [address] [phone] Urine Culture <pending> Coronavirus 2019 Nasopharygeal 07/26/[address] [address] [phone] Coronavirus 2019 Nasopharygeal ASSAY INFORMATIO <SEE N OTE> 1 Complete Blood Count 05/21/2021 [facility] Conservation Assistant: [place] [address] [phone] WBC 6.3 x10*3/UL 4.1 - 10.9 RBC [...] 2.0 - 7.8 Comprehensive Chem Profile 05/21/2021 [facility] Conservation Assistant: [place] [address] [phone] Glucose 81 mg/dL 74 - 99 2 [...] 60 mL/min >60 3 Lipid Profile 05/21/2021 [facility] Conservation Assistant: [place] [address] [phone] Cholesterol 134 mg/dL 131 - 200 Triglycerides 128 mg/dL 30 - 150 HDL Cholesterol 33 mg/dL Low 35 - 60 LDL (Calculated) 75 CALC 50 - 159 1 ASSAY INFORMATION: Real Time RT-PCR NOTE: The COVID-19 assay has been cleared by the U.S. Food and Drug Administration under the Emergency Use Authorization (EUA). 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 DASH Loaiza Z00.00 Encntr for [...] 11/18/2021 9:40 am - DASH Loaiza at [facility] 05/21/2021 - DASH Loaiza* Z00.00 [...] Dr Reason for Referral Status Appt Date [facility] CONSULT FOR RT FLANK PAIN, H X OF KIDNEY STONE PT SCHEDULED FOR CT ABD/PELVIS AT [facility] ON 06/06/21 Created /0 000 [id number], [address] [place], [place] [id number] [phone]
--- OUTSIDE RECORDS SUMMARY | 2021-07-31 06:15 | CCD ---
Author Author [facility] Organization [facility] Address Unknown Phone Unavailable Care Team Providers Care Vice President Biostatistics Name Role Phone Lobato, Juju HAND DRAWER IN Unavailable Unavailable Lobato, Juju HAND DRAWER IN Unavailable Unavailable Lobato, Juju HAND DRAWER IN Unavailable Unavailable Lobato, Juju HAND DRAWER IN Unavailable Unavailable Lobato, Juju HAND DRAWER IN Unavailable Unavailable Lobato, Juju HAND DRAWER IN Unavailable Unavailable Lobato, Juju HAND DRAWER IN Unavailable Unavailable Lobato, Juju HAND DRAWER IN Unavailable Unavailable Lobato, Juju HAND DRAWER IN Unavailable Unavailable Lobato, Juju HAND DRAWER IN Unavailable Unavailable Lobato, Juju HAND DRAWER IN Unavailable Unavailable Lobato, Juju HAND DRAWER IN Unavailable Unavailable Lobato, Juju HAND DRAWER IN Unavailable Unavailable LINDSAY, J Lexie ANP Unavailable Unavailable LINDSAY, J Lexie ANP Unavailable Unavailable LINDSAY, J Lexie ANP Unavailable Unavailable LINDSAY, J Lexie ANP Unavailable Unavailable LINDSAY, J Lexie ANP Unavailable Unavailable LINDSAY, J Lexie ANP Unavailable Unavailable LINDSAY, J Lexie ANP Unavailable Unavailable LINDSAY, J Lexie ANP Unavailable Unavailable LINDSAY, J Lexie ANP Unavailable Unavailable LINDSAY, J Lexie ANP Unavailable Unavailable LINDSAY, J Lexie ANP Unavailable Unavailable LINDSAY, J Lexie ANP Unavailable Unavailable LINDSAY, J Lexie ANP Unavailable Unavailable LINDSAY, J Lexie ANP Unavailable Unavailable LINDSAY, J Lexie ANP Unavailable Unavailable LINDSAY, J Lexie ANP Unavailable Unavailable LINDSAY, J Lexie ANP Unavailable Unavailable LINDSAY, J Lexie ANP Unavailable Unavailable LINDSAY, J Lexie ANP Unavailable Unavailable LINDSAY, J Lexie ANP Unavailable Unavailable LINDSAY, J Lexie ANP Unavailable Unavailable LINDSAY, J Lexie ANP Unavailable Unavailable LINDSAY, J Lexie ANP Unavailable Unavailable LINDSAY, J Lexie ANP Unavailable Unavailable LINDSAY, J Lexie ANP Unavailable Unavailable LINDSAY, J Lexie ANP Unavailable Unavailable LINDSAY, J Lexie ANP Unavailable Unavailable LINDSAY, J Lexie ANP Unavailable Unavailable LINDSAY, J Lexie ANP Unavailable Unavailable LINDSAY, J Lexie ANP Unavailable Unavailable LINDSAY, J Lexie ANP Unavailable Unavailable LINDSAY, J Lexie ANP Unavailable Unavailable LINDSAY, J Lexie ANP Unavailable Unavailable LINDSAY, J Lexie ANP Unavailable Unavailable LINDSAY, J Lexie ANP Unavailable Unavailable LINDSAY, J Lexie ANP Unavailable Unavailable LINDSAY, J Lexie ANP Unavailable Unavailable LINDSAY, J Lexie ANP Unavailable Unavailable LINDSAY, J Lexie ANP Unavailable Unavailable LINDSAY, J Lexie ANP Unavailable Unavailable LINDSAY, J Lexie ANP Unavailable Unavailable LINDSAY, J Lexie ANP Unavailable Unavailable LINDSAY, J Lexie ANP Unavailable Unavailable LINDSAY, J Lexie ANP Unavailable Unavailable LINDSAY, J Lexie ANP Unavailable Unavailable LINDSAY, J Lexie ANP Unavailable Unavailable LINDSAY, J Lexie ANP Unavailable Unavailable LINDSAY, J Lexie ANP Unavailable Unavailable LINDSAY, J Lexie ANP Unavailable Unavailable LINDSAY, J Lexie ANP Unavailable Unavailable LINDSAY, J Lexie ANP Unavailable Unavailable LINDSAY, J Lexie ANP Unavailable Unavailable LINDSAY, J Lexie ANP Unavailable Unavailable LINDSAY, J Lexie ANP Unavailable Unavailable LINDSAY, J Lexie ANP Unavailable Unavailable LINDSAY, J Lexie ANP Unavailable Unavailable LINDSAY, J Lexie ANP Unavailable Unavailable LINDSAY, J Lexie ANP Unavailable Unavailable LINDSAY, J Lexie ANP Unavailable Unavailable LINDSAY, J Lexie ANP Unavailable Unavailable LINDSAY, J Lexie ANP Unavailable Unavailable LINDSAY, J Lexie DASH Unavailable Unavailable LINDSAY, Loren Owen ANP Unavailable Unavailable LINDSAY, Loren Owen ANP Unavailable Unavailable Re-disclosure Warning The records that you are about to access may contain information from federally-assisted alcohol or drug abuse programs. If such information is present, then the following federally mandated warning applies: This information has been disclosed to you from records protected by federal confidentiality rules (42 CFR part 2). The federal rules prohibit you from making any further disclosure of this information unless further disclosure is expressly permitted by the written consent of the person to whom it pertains or as otherwise permitted by 42 CFR part 2. A general authorization for the release of medical or other information is NOT sufficient for this purpose. The Federal rules restrict any use of the information to criminally investigate or prosecute any alcohol or drug abuse patient.The records that you are about to access may contain highly sensitive health information, the redisclosure of which is protected by Article 27-F of the [facility] Public Health law. If you continue you may have access to information: Regarding HIV / AIDS; Provided by facilities licensed or operated by the [facility] Office of Mental Health; or Provided by the [facility] Office for People With Developmental Disabilities. If such information is present, then the following [facility] mandated warning applies: This information has been disclosed to you from confidential records which are protected by state law. State law prohibits you from making any further disclosure of this information without the specific written consent of the person to whom it pertains, or as otherwise permitted by law. Any unauthorized further disclosure in violation of state law may result in a fine or prison sentence or both. A general authorization for the release of medical or other information is NOT sufficient authorization for further disc losure. Family History Family Member Name Family Member Gender Family Member Status Date o f Status Description Data Source(s) Unknown Unknown Problem MEDENT ([facility], [facility]) mgf,pgf Unknown Male Problem [facility] ([facility] Encounters Encounter Providers Location Date Indications Data Source(s ) [place] [address] [address] 07/21/2021 12:00:00 AM EST eCW1 (On license of [facility]) Outpatient Attender: Lexie Lopes 09:00:00 AM EDT MEDENT ([facility] ) Outpatient Attender: Lexie LINDSAY Lopes 04/2020 12:30:00 PM EST MEDENT ([facility] ) Outpatient Attender: Juju alcantar 06/14/2020 05:00:00 PM EDT [facility] ([facility] Immunizations Vaccine Date Status Description Data Source(s) COVID-19 VACCINE Moderna 07/21/2021 12:00:00 AM EST completed [facility] Vaccine Series Complete: YESThis Data wa s Submitted to [facility]. COVID-19 VACCINE Moderna 10/31/2020 12:00:00 AM EST completed [facility] Vaccine Series Complete: YESThis Data wa s Submitted to [facility]. COVID-19 VACCINE Moderna 10/03/2020 12:00:00 AM EST completed [facility] Vaccine Series Complete: NOThis Data was Submitted to [facility] [employer]. Medications Medication Brand Name Start Date Product Form Dose Route Admi nistrative Instructions Pharmacy Instructions Status Indications Reaction Description Data Source(s) Ondansetron 4 MG Oral Tablet [Zofran] Zofran 07/02/2021 12:00:00 AM EDT ORAL active MEDENT ([facility]) 4 mg 07/02/2021 12:00:00 AM EDT tablet 18 TAKE ONE TABLET BY MOUTH EVERY 6 HOURS NEEDED FOR NAUSEA TAKE ONE TABLET BY MOUTH EVERY 6 HOURS A S NEEDED FOR NAUSEA SOLD: 07/02/2021 [facility] 137-50 mcg/spray 04/23/2021 12:00:00 AM EDT spray,non-aeroso l 23 SPRAY ONE SPRAY IN EACH NOSTRIL TWICE A DAY SPRAY ONE SPRAY IN EACH NOSTRIL TWICE A DAY SOLD: 04/24/2021 [facility] Covid-19 vaccine, Unspecified 10/30/2020 12:00:00 AM EST completed [facility] ([facility]) Medication administered onsite Covid-19 vaccine, Unspecified 10/02/2020 12:00:00 AM EST completed [facility] ([facility]) Medication administered onsite 875-125 mg 06/14/2020 12:00:00 AM EDT tablet 20 TAKE ONE TABLET BY MOUTH TWICE A DAY FOR 10 DAYS TAKE ONE TABLET BY MOUTH TWICE A DAY FOR 10 DAYS SOLD: 06/14/2020 [facility] Amoxicillin 875 MG / Clavulanate 125 MG Oral Tablet Am oxicillin/Clavulanate Potassium 06/14/2020 12:00:00 AM EDT ORAL active MEDENT ([facility], [facility]) montelukast 10 MG Oral Tablet MONTELUKAST SODIUM 05/11/2020 12:0 0:00 AM EDT tablet 30 TAKE ONE TABLET BY MOUTH AT BEDT JOANNA TAKE ONE TABLET BY MOUTH AT BEDTIME SOLD: 04/21/2021 [facility] Insurance Providers Payer name Policy type / Coverage type Policy ID Covered libertarian ID Covered libertarian's relationship to vega Policy Vega Plan Information POMCO [id number] FA2 [id number] [facility] [phone] [id number] POMCO [id number] FA2 [id number] POMCO [id number] [facility] [id number] Umr (New [employer]) Commercial [id number] Family Dependent [id number] Umr (New [employer]) Commercial [id number] Family Dependent [id number] [employer]/Umr (Old) Medigap Part B [id number] Family Dependent [id number] [facility] Medigap Part B [id number] Family Dependent [id number] [employer]/Umr (Old) Medigap Part B [id number] Family Dependent [id number] [employer]Umr (Old) Medigap Part B [id number] Family Dependent [id number] [employer]Uhc/[employer] Health Maintenance Organization (HMO) [id number] Family Dependent [id number] [employer]Uhc[employer] Health Maintenance Organization (HMO) [id number] Family Dependent [id number] R [facility] [id number] SP [id number] POM[employer] PPO O [id number] C [id number] POM[employer] [id number] SO2 [id number] [employer] [id number] FA2 [id number] [employer] Commercial [id number] Family Dependent [id number] [employer] Commercial [id number] Family Dependent [id number] [employer] Commercial [id number] Family Dependent [id number] [employer] Commercial [id number] Family Dependent [id number] [employer] Ppo Commercial [id number] Family Dependent [id number] [employer] [facility] (pr) Commercial [id number] Family Dependent [employer] [id number] FA2 [id number] Umr[employer]Uhc/[employer] Health Maintenance Organization (HMO) [id number] Family Dependent [id number] SELF PAY ONLY [id number] SP [id number] UMR O [id number] S [id number] UMR O [id number] S [id number] [facility] [id number] SP [id number] [facility] [id number] SP [id number] Problems, Conditions, and Diagnoses No Information Surgeries/Procedures Procedure Description Date Indications Data Source(s) PERIODIC PREVENTIVE MED EST PATIENT 18-39 YRS 05/21/20 12:00:00 AM EDT MEDENT ([facility]) Results ID Date Data Source [id number] 07/28/2021 12:31:00 PM EST [facility] ([facility] Name Value Range Interpretation Code Description Data Latisha rce(s) Supporting Document(s) Bacteria identified in Urine by Culture Laboratory test result [facility] ([facility]) ID Date Data Source [id number] 07/26/2021 09:40:00 AM EST [facility] Name Value Range Interpretation Code Description Data Latisha rce(s) Supporting Document(s) SARS-CoV-2 (COVID-19) RNA [Presence] in Respiratory specimen by TEJA with probe detection Not Detected [facility] This lab was ordered by [facility] and reported by [employer] ID Date Data Source [id number] 07/26/2021 09:40:00 AM EST [facility] ([facility] Name Value Range Interpretation Code Description Data Latisha rce(s) Supporting Document(s) Coronavirus 2019 Nasopharygeal Laboratory test result [facility] ([facility]) ASSAY INFORMATION: Real Time RT-PCR NOTE: The COVID-19 assay has been cleared by the U.S. Food and Drug Administration under the Emergency Use Authorization (EUA). [email or web address] and [facility] are designated as high complexity laboratories by the Clinical Laboratory Improvement Amendments of 1988(CLIA) and are qualified to perform this test. Not Detected ID Date Data Source [id number] 05/21/2021 09:50:00 AM EDT [facility] Name Value Range Interpretation Code Description Data Latisha rce(s) Supporting Document(s) Cholesterol [Mass/volume] in Serum or Plasma 134 mg/dL 131-200 [facility] ([facility] Triglyceride [Mass/volume] in Serum or Plasma 128 mg/dL 30-150 [facility] ([facility]) Cholesterol in HDL [Mass/volume] in Serum or Plasma 33 mg/dL 35-60 [facility] ([facility]) Cholesterol in LDL [Mass/volume] in Serum or Plasma by calcu lation 75 CALC 50-159 [facility] ([facility]) ID Date Data Source [id number] 05/21/2021 09:50:00 AM EDT [facility] ([facility]) Name Value Range Interpretation Code Description Data Latisha rce(s) Supporting Document(s) Glucose [Mass/volume] in Serum or Plasma 81 mg/dL 74-99 [facility] ([facility]) 100-125 mg/dL PRE-DIABETES/FASTING >126 mg/dL DIABETES/FASTING Urea nitrogen [Mass/volume] in Serum or Plasma 10 mg/dL 7-18 [facility] ([facility]) Creatinine 1.0 mg/dL 0.6-1.3 [facility] ([facility]) Sodium [Moles/volume] in Serum or Plasma 139 meq/L 136-145 [facility] ([facility]) Potassium [Moles/volume] in Serum or Plasma 4.3 meq/L 3.5-5.1 [facility] ([facility]) Chloride [Moles/volume] in Serum or Plasma 103 meq/L 98-107 [facility] ([facility]) Carbon dioxide, total [Moles/volume] in Serum or Plasma 32 meq/L 21 -32 [facility] ([facility]) Calcium [Mass/volume] in Serum or Plasma 9.2 mg/dL 8.5-10.1 [facility] ([facility]) Alkaline phosphatase isoenzyme [Units/volume] in Serum or Pl asma 71 mg/dL 46-116 [facility] ([facility]) Aspartate aminotransferase [Enzymatic activity/volume] in Serum or Plasma 37 U/L 15-37 [facility] ([facility] ) Total Bilirubin 0.5 mg/dL 0.2-1.0 [facility] ([facility]) Alanine aminotransferase [Enzymatic activity/volume] in Seru m or Plasma 80 U/L 12-78 [facility] ([facility]) Albumin [Mass/volume] in Serum or Plasma 4.0 g/dL 3.4-5.0 [facility] ([facility]) Proteinase 3 Ab [Units/volume] in Serum 7.4 g/dL 6.4-8.2 [facility] ([facility]) A/G Ratio 1.18 CALC 1.00-1.90 [facility] ([facility]) Glomerular filtration rate/1.73 sq M pre dicted among blacks [Volume Rate/Area] in Serum or Plasma by Creatinine-based formula (MDRD) Laboratory test result [facility] ([facility] <content>CHRONIC KIDNEY DISEASE STAGING PER NKF</content>
<content></content>
<content>STAGE I & II GFR >= 60 NORMAL TO MILDLY DECREASED</content>
<content>STAGE III GFR 30-59 MODERATELY DECREASED</content>
<content>STAGE IV GFR 15-29 SEVERELY DECREASED</content>
<content>STAGE V GFR <15 VERY LITTLE GFR LEFT</content>
<content>ESRD GFR <15 ON CARTRIDGE LOADING OPERATOR</content>
<content></content> Glomerular filtration rate/1.73 sq M pre dicted among non-blacks [Volume Rate/Area] in Serum or Plasma by Creatinine-based formula (MDRD) Laboratory test result [facility] ([facility] ) ID Date Data Source [id number] 05/21/2021 09:50:00 AM EDT [facility] ([facility] Name Value Range Interpretation Code Description Data Latisha rce(s) Supporting Document(s) Leukocytes [#/volume] in Blood by Automated count 6.3 x10*3/UL 4.1-10 .9 [facility] ([facility]) Hemoglobin [Mass/volume] in Blood 16.0 g/dL 12.0-18.0 [facility] ([facility]) Erythrocytes [#/volume] in Blood by Automated count 5.31 x10*6/UL 4.2 0-6.30 [facility] ([facility] MCV 85.8 fL 80.0-97.0 [facility] ([facility]) Hematocrit [Volume Fraction] of Blood by Automated count 45.5 % 3 7.0-51.0 [facility] ([facility]) MCH 30.2 pg 26.0-32.0 [facility] MCHC 35.2 g/dL 31.0-38.0 [facility] Erythrocyte distribution width [Ratio] by Automated count 12.6 % 11.6-13.7 [facility] ([facility]) Platelets [#/volume] in Blood by Automated count 253 x10*3/UL 140-440 [facility] ([facility]) MPV 9.5 FL 7.8-11.0 [facility] Lymph % 26.2 % 10.0-58.5 [facility] Mid % 6.5 % 1.7-9.3 [facility] Neut % 67.3 % 37.0-92.0 [facility] Lymph # 1.6 x10*3/UL 0.6-4.1 [facility] ([facility]) Mid # 0.5 x10*3/UL 0.1-0.6 [facility] ([facility]) Neut # 4.2 x10*3/UL 2.0-7.8 [facility] ([facility]) ID Date Data Source [id number] 08/27/2020 12:00:00 AM EST [facility] Name Value Range Interpretation Code Description Data Latisha rce(s) Supporting Document(s) SARS-CoV-2 (COVID-19) RNA [Presence] in Respiratory specimen by TEJA with probe detection [facility] This lab was ordered by [facility] and reported by [employer]. ID Date Data Source [id number] 07/10/2020 12:00:00 AM EST [facility] Lexie Anderson Anp, Rnnp Patient Name:PRISCILLA BRAND[age] [facility] Date of : 1995e 89 Date of Exam: 07/10/2020CHIQUI Goldstein [address]RW#: [phone]: [phone] EXAM: CT ABDOMEN & PELVIS WITHOUT CONTRASTCLINICAL INFORMATION: Right-sided pain.Comparison 07/16/2017 and 10/04/2017. The latest prior examination showedbilateral non-obstructing nephroliths.Low dose [address] scanning of the abdomen and pelvis wasobtained without the administration of intravenous contrast.The lung bases are clear and unchanged.Limited evaluation of the solid intraabdominal organs and gallbladder showno significant changes from the prior exam. Limited evaluation of thepancreas, adrenal glands, and left kidney show them to be within normallimits.Seen in the right kidney mid-polar region, there is an oval shaped 7 mmsized nephrolith which represents a change from the prior exam. There isno hydronephrosis on either side. The smaller right nephrolith seenpreviously is no longer present. There is no evidence of hydroureter andthere are no ureteroliths on either side. There are no urinary bladdercalcifications. There is a small phlebolith seen on the right, status quo. There is no free fluid or free air. The bowel loops and the mesenteriesare again seen to be within normal limits. The abdominal aorta andparaaortic regions are again seen to be within normal limits. The imagedosseous structures are stableIMPRESSION:1. There is a non-obstructing right nephrolith as described above.2. Other findings as described above.Accredited by the [employer] [place] [employer] in [place].STACIA Hart/Erick you for referring PRISCILLA BRAND to our office. Electronically Signed - LOLA COPELAND DO 07/10/20 14:32 Name Value Range Interpretation Code Description Data Latisha rce(s) Supporting Document(s) ID Date Data Source [id number] 07/08/2020 02:09:00 PM EST [facility] ([facility]) Name Value Range Interpretation Code Description Data Latisha rce(s) Supporting Document(s) Urine Color Laboratory test result MEDEN T ([facility]) Specific gravity of Urine 1.020 1.005-1.030 [facility] DENT ([facility]) Urine Appearance Laboratory test result Abnormal (applies to non-numeric results) [facility] ([facility]) Urine PH 6.0 units 5.0-9.0 [facility]) Urine Protein Laboratory test result 0-0 MED ENT ([facility]) Urine Leukocytes Laboratory test result [facility] ([facility]) Urine Blood Laboratory test result Abnormal (applies to non-numeric results) [facility] ([facility]) Urine Nitrite Laboratory test result MED ENT ([facility]) Glucose [Presence] in Urine Laboratory test result [facility] ([facility]) Urine Ketone Laboratory test result MEDE NT ([facility]) Bilirubin.total [Mass/volume] in Serum or Plasma Laboratory test resu lt [facility] ([facility]) Urine Urobilinogen Laboratory test result 0.2-1.0 Abnorm al (applies to non- numeric results) [facility] ([facility]) Procedure Social History Code Duration Value Status Description Data Source(s ) Smoking 07/21/2021 12:00:00 AM EST Never Smoker completed Never S moker eCW1 ([facility]) Smoking 06/14/2020 12:00:00 AM EDT Patient has never smoked co mpleted Patient has never smoked MED[facility] ([facility], [facility]) Vital Signs ID Date Data Source [id number] Name Value Range Interpretation Code Description Data Source(s) Body weight 357 [lb_av] 357 [lb_av] eCW1 ([facility]) Body weight 161.93 kg 161.93 kg eCW1 ([facility]) Body height 74 [in_i] 74 [in_i] eCW1 ([facility]) Body mass index (BMI) [Ratio] 45.83 kg/m2 45.83 kg/m2 eCW1 ([facility]) Heart rate 56 /min 56 /min eCW1 ([facility]) Respiratory rate 18 /min 18 /min eCW1 ([facility]) Body temperature 97.3 [degF] 97.3 [degF] eCW1 ( [facility]) Systolic blood pressure 128 mm[Hg] 128 mm[Hg] e CW1 ([facility]) Diastolic blood pressure 78 mm[Hg] 78 mm[Hg] eCW1 ([facility]) Heart rate 84 /min 84 /min [facility] ([facility]) Systolic blood pressure 142 mm[Hg] 142 mm[Hg] M EDENT ([facility]) Diastolic blood pressure 88 mm[Hg] 88 mm[Hg] MED[facility] ([facility]) Body weight 347.00 [lb_av] 347.00 [lb_av] MEDEN T ([facility]) Body height 72.75 [in_i] 72.75 [in_i] [facility] ([facility]) 6'0.75" Oxygen saturation in Arterial blood by Pulse oximetry 96 % 96 % MED[facility] ([facility]) Body mass index (BMI) [Ratio] 46.1 kg/m2 46.1 k g/m2 [facility] ([facility]) Oxygen saturation in Arterial blood by Pulse oximetry 97 % 97 % [facility] ([facility]) Body weight 358.00 [lb_av] 358.00 [lb_av] MEDEN T ([facility]) Body mass index (BMI) [Ratio] 47.6 kg/m2 47.6 k g/m2 MED[facility] ([facility]) Systolic blood pressure 122 mm[Hg] 122 mm[Hg] M EDENT ([facility]) Diastolic blood pressure 70 mm[Hg] 70 mm[Hg] [facility] ([facility]) Heart rate 82 /min 82 /min [facility] ([facility]) Body height 72.75 [in_i] 72.75 [in_i] [facility] ([facility]) 6'0.75" Heart rate 90 /min 90 /min [facility] ([facility]) Respiratory rate 14 /min 14 /min [facility] ( [facility], [facility]) Body height 74 [in_i] 74 [in_i] [facility] ([facility]) 6'2" Oxygen saturation in Arterial blood by Pulse oximetry 99 % 99 % [facility] ([facility], [facility]) Body temperature 97.8 [degF] 97.8 [degF] [facility] ([facility], [facility]) Body mass index (BMI) [Ratio] 46.2 kg/m2 46.2 k g/m2 [facility] ([facility], [facility]) Systolic blood pressure 135 mm[Hg] 135 mm[Hg] [facility] ([facility], [facility]) Diastolic blood pressure 87 mm[Hg] 87 mm[Hg] [facility] ([facility], [facility]) Body weight 360.00 [lb_av] 360.00 [lb_av] [facility] ([facility], [facility])
[2021-07-31] MEDS ORDERED: LIDOCAINE 2% 100MG/5ML SDV (FOR ANES.) As Ordered ONE (06:47)
[2021-07-31] MEDS ORDERED: propofoL 200 MG/20 ML VIAL As Ordered ONE ×3 (06:47→08:22)
[2021-07-31] MEDS ORDERED: fentaNYL 100 MCG/2 ML INJECTION (J3010) As Ordered ONE (06:48)
[2021-07-31] MEDS ORDERED: MIDAZOLAM INJ 2MG/2ML VIAL (J2250 PER 1MG) As Ordered ONE (06:49)
--- NOTE | 2021-07-31 07:19 | REP ---
INDICATION: KUB BEFORE SDC COMPARISON: None. TECHNIQUE: Supine view of the abdomen and pelvis. FINDINGS: 6 mm nonobstructing right renal calculus noted. Smaller intrarenal and ureteral calculi cannot be excluded due to examination limitations. Bowel gas pattern is nonspecific. No organomegaly. No foreign body. Skeletal structures intact. IMPRESSION: 6 mm nonobstructing right renal calculus. <Electronically signed by Ketan Byrne > 07/31/21 0735
[2021-07-31] MEDS ORDERED: OXYC1TAB23 PO (08:05)
[2021-07-31] MEDS ORDERED: FLOM0.4C39 PO (08:05)
--- NOTE | 2021-07-31 08:50 | RO ---
OPERATIVE NOTE DATE OF OPERATION: 07/31/2021 PREOPERATIVE DIAGNOSIS: Right kidney stone. POSTOPERATIVE DIAGNOSIS: Right kidney stone. PROCEDURE: Right extracorporeal shock wave lithotripsy. SURGEON: Thomas Gao MD [employer]IATION PROJECT MANAGER: None. ANESTHESIA: MAC. OPERATIVE INDICATIONS: This is a 26-year-old male who was found to have a non-obstructing 6 mm right kidney stone. He is brought to the operating room today for treatment. DESCRIPTION OF PROCEDURE: The patient was brought to the operating room and MAC anesthesia was administered. Prophylactic antibiotics were infused. He was placed in the supine position in preparation for right-sided extracorporeal shock wave lithotripsy. Fluoroscopy was utilized to monitor stone position and fragmentation throughout the procedure. Shock waves were then delivered to the right-sided kidney ungated. There were no arrhythmias. The stone did appear to fragment. After 2500 shocks the procedure was concluded. The patient was awakened from anesthesia and transported to the recovery room in stable condition. ESTIMATED BLOOD LOSS: 0 mL. COMPLICATIONS: None. SPECIMEN: None. PLAN: The patient will follow up in urology clinic in a few weeks with imaging prior to assess for residual stone burden.
[2021-07-31 09:30] VITALS: BP 136/66
== END 2021-07-31 09:30 | disposition home or self-care (01) ==
LOC: M SDC 06:12
PROVIDERS: ATTEND Urology
DX: N20.0 Calculus of kidney (principal); I10 Essential (primary) hypertension; Z79.899 Other long term (current) drug therapy; E66.01 Morbid (severe) obesity due to excess calories; Z87.891 Personal history of nicotine dependence
CPT/HCPCS: 50590; 74018; J0690; J2250; J3010

== ENCOUNTER → 2021-08-18 | Outpatient (CLI) | payer OTHER ==
[~2021-08-18] MED LIST changes: +FLOM0.4C39 PO; -LR 1,000 ML IV ONE; +OXYC1TAB23 PO; -ceFAZolin SOD 1 GM in D5W MINI-BAG PLUS 50 ML IV ONE; -ceFAZolin SOD 2 GM in IV 1 EA IV ONE
== END ==
LOC: M PLAIMG 14:23
PROVIDERS: ATTEND Nurse Practitioner Women's Health
DX: N20.0 Calculus of kidney (principal)

== ENCOUNTER → 2021-09-03 | Outpatient (REF) | payer OTHER | LOC: M SMT 13:05 | PROVIDERS: ATTEND Nurse Practitioner Women's Health | DX: N20.0 Calculus of kidney (principal) ==

== ENCOUNTER → 2022-12-24 | Outpatient (CLI) | payer OTHER | LOC: M SOG 07:55 | PROVIDERS: ATTEND Physician Assistant | DX: M79.641 Pain in right hand (principal) ==

== ENCOUNTER → 2023-01-14 | Outpatient (CLI) | payer OTHER | LOC: M PLARAD 15:13 | PROVIDERS: ATTEND Orthopaedic Surgery Hand Surgery | DX: R22.31 Localized swelling, mass and lump, right upper limb (principal) ==

== ENCOUNTER 2023-02-22 06:38 | Day surgery (SDC) | payer OTHER ==
[~2023-02-22] VITALS: Ht 188 cm; Wt 153.0 kg
[~2023-02-22 06:38] MED LIST changes: -LISI20TA33; +LISI20TA33 PO
[2023-02-22] MEDS ORDERED: LR 1,000 ML IV SCH ×2 (07:15→09:50)
[2023-02-22] MEDS ORDERED: fentaNYL 100 MCG/2 ML INJECTION As Ordered ONE (07:17)
[2023-02-22] MEDS ORDERED: MIDAZOLAM INJ 2MG/2ML VIAL As Ordered ONE (07:17)
[2023-02-22] MEDS ORDERED: propofoL 200 MG/20 ML VIAL As Ordered ONE (07:18)
[2023-02-22] MEDS ORDERED: LIDOCAINE 2% 100MG/5ML SDV (FOR ANES.) As Ordered ONE (07:18)
[2023-02-22] MEDS ORDERED: ONDANSETRON 4MG 2ML VIAL As Ordered ONE (07:19)
[2023-02-22] MEDS ORDERED: BACITRACIN OINTMENT 30GM TUBE As Ordered ONE (08:56)
[2023-02-22] MEDS ORDERED: ceFAZolin 2 GM/D5W 50 ML IV BAG As Ordered ONE (09:13)
[2023-02-22] MEDS ORDERED: ACETAMINOPHEN 1000MG 100ML IV BAG As Ordered ONE (09:23)
[2023-02-22] MEDS ORDERED: KETOROLAC 60MG 2ML VIAL As Ordered ONE (09:39)
[2023-02-22] MEDS ORDERED: ONDANSETRON 4MG 2ML VIAL IV PRN (09:50)
[2023-02-22] MEDS ORDERED: HYDROMORPHONE HCL 0.5 MG/ 0.5 ML SYRINGE IV PRN (09:50)
[2023-02-22] MEDS ORDERED: fentaNYL 100 MCG/2 ML INJECTION IV PRN (09:50)
[2023-02-22] MEDS ORDERED: oxyCODONE 5MG TAB PO PRN (09:50)
[2023-02-22 11:28] VITALS: BP 136/79; TEMP 97.7; O2SAT 97
== END 2023-02-22 11:28 | disposition home or self-care (01) ==
LOC: M SDC 06:38
PROVIDERS: ATTEND Orthopaedic Surgery Hand Surgery
DX: D36.12 Benign neoplasm of peripheral nerves and autonomic nervous system, upper limb, including shoulder (principal); I10 Essential (primary) hypertension; G47.33 Obstructive sleep apnea (adult) (pediatric); Z79.899 Other long term (current) drug therapy
CPT/HCPCS: 26113; 88305; J0131; J0690; J1100; J1885; J2250; J2405; J3010; S0020

== ENCOUNTER 2023-11-30 04:49 | Emergency (ER) | payer OTHER ==
[~2023-11-30] VITALS: Ht 188 cm; Wt 161.4 kg
[2023-11-30] MEDS ORDERED: METH-1164 PO (06:15)
[2023-11-30] MEDS ORDERED: KETOROLAC 30 MG/ML 1ML VIAL IV ONE (06:15)
[2023-11-30] MEDS ORDERED: NAPR-837 PO (06:15)
[2023-11-30] MEDS: methocarbamoL 500 MG TAB PO ONE (06:26)
[2023-11-30] MEDS: KETOROLAC 60MG 2ML VIAL IM ONE (06:26)
[2023-11-30 07:04] VITALS: BP 129/83; TEMP 97.8; O2SAT 100
== END 2023-11-30 07:06 | disposition home or self-care (01) ==
LOC: M ED 04:49
DX: M25.511 Pain in right shoulder (principal); M62.838 Other muscle spasm; I10 Essential (primary) hypertension; Y92.009 Unspecified place in unspecified non-institutional (private) residence as the place of occurrence of the external cause; Y93.89 Activity, other specified; Y99.9 Unspecified external cause status; Z79.811 Long term (current) use of aromatase inhibitors; Z79.1 Long term (current) use of non-steroidal anti-inflammatories (NSAID); Z79.899 Other long term (current) drug therapy
CPT/HCPCS: 73030; 96372; 99283; J1885

== ENCOUNTER → 2024-11-15 | Outpatient (CLI) | payer OTHER ==
[~2024-11-15] MED LIST changes: +METH-1164 PO; +NAPR-837 PO
== END ==
LOC: M RAD 07:00
PROVIDERS: ATTEND Nurse Practitioner Adult Health
DX: R74.01 Elevation of levels of liver transaminase levels (principal)

== ENCOUNTER → 2024-12-26 | Outpatient (REF) | payer OTHER ==
[~2024-12-26] MED LIST changes: -FLOM0.4C39 PO; +TAMS-18 PO
[2024-12-26 18:49] LABS: IRON (FE) 58 UG/DL (65-175); PERCENT SATURATION 19.5 % (19.7-50.0); TOTAL IRON BINDING CAPACITY 298 UG/DL (250-425)
[2024-12-26 18:52] LABS: FERRITIN 201.3 NG/ML (10.5-307.3)
[2024-12-26 19:01] LABS: HEPATITIS B SURFACE ANTIGEN NEGATIVE (NEGATIVE)
[2024-12-26 19:23] LABS: HEPATITIS B CORE ANTIBODY IGM NEGATIVE (NEGATIVE); HEPATITIS C VIRUS ABY INDEX 0.17 INDEX (<0.8)
== END ==
LOC: M LAB REF 17:15
PROVIDERS: ATTEND Nurse Practitioner Adult Health
DX: R74.01 Elevation of levels of liver transaminase levels (principal)

== ENCOUNTER → 2025-01-10 | Outpatient (CLI) | payer OTHER | LOC: M RAD 16:01 | PROVIDERS: ATTEND Nurse Practitioner Adult Health | DX: R10.11 Right upper quadrant pain (principal); N20.0 Calculus of kidney ==

== ENCOUNTER → 2025-06-28 | Outpatient (CLI) | payer OTHER | LOC: M WUC 13:20 | PROVIDERS: ATTEND Nurse Practitioner Adult Health | DX: M25.511 Pain in right shoulder (principal) ==